=== PATIENT | female | born 1990 ===

== ENCOUNTER → 2025-04-29 23:59 | Outpatient (BNV) | payer OTHER, SELFPAY ==
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
== END ==
PROVIDERS: PCP Nurse Practitioner Family; Visit Provider Nurse Practitioner Family
DX: Z91.410 Personal history of adult physical and sexual abuse (principal); F43.10 Post-traumatic stress disorder, unspecified; G47.00 Insomnia, unspecified; T74.91XA Unspecified adult maltreatment, confirmed, initial encounter; B00.9 Herpesviral infection, unspecified
CPT/HCPCS: 99205